=== PATIENT | female | born 1955 | race Two or more races ===

== ENCOUNTER 2016-06-27 17:41 | Emergency (ER) | payer OTHER ==
[2016-06-27 17:48] VITALS: O2SAT 95
[2016-06-27] MEDS ORDERED: METHOCARBAMOL 750 MG TAB PO ONE (19:09)
--- NOTE | 2016-06-27 19:11 | EDPHY ---
[id number] Exam Limitations: No limitations - Personal History Current Tetanus/Diphtheria Vaccine: Yes - Medical/Surgical History Hx Asthma: No Hx Chronic Respiratory Disease: No Hx Diabetes: No Hx Cardiac Disease: No Hx Renal Disease: No Hx Cirrhosis: No Hx Alcoholism: No Hx HIV/AIDS: No Hx Splenectomy or Spleen Trauma: No Other PMH: HTN, Cervical CA, high cholesteral, l hip surgery. - Social History Smoking Status: Former smoker Time Seen by Provider: 06/27/16 18:12 HPI/ROS: CHIEF COMPLAINT: Left-sided neck pain HISTORY OF PRESENT ILLNESS: 60-year-old female presents emergency department complaining of left-sided neck pain after she slipped on the ice yesterday while leaving work. Patient states she fell onto her knees and then onto her left hip. She denies head strike, no loss of consciousness, remembers the entire accident. Patient reports her knees feel mildly sore, no swelling, her left hip feels normal with no pain, she does have this replaced last year. She denies numbness or tingling in her arms or legs. Patient reports stiffness in the left side of her neck that radiates down to her trapezius. She saw her physical therapist today who recommended she see a provider who can prescribe her physical therapy. REVIEW OF SYSTEMS: A comprehensive 10 point review of systems is otherwise negative aside from elements mentioned in the history of present illness. (Gina Lugo) - Physical Exam Exam: Physical Exam Gen: Alert and Oriented, NAD HEENT: PERRL, moist mucous membranes NECK: no midline tenderness to palpation, left-sided paraspinal and sternocleidomastoid tenderness to palpation CV: regular rate and regular rhythm PULM: CTAB, no wheezes ABDOMEN: soft, non tender to palpation, BS present BACK: Left-sided trapezius tenderness to palpation No midline tenderness to palpation NEURO: Neurologically grossly intact EXTREMITIES: normal appearing, full range of motion of bilateral shoulders, bilateral knees and hips. No contusions, abrasions or swelling SKIN: no rash or break in skin on exposed skin PSYCH: answers questions appropriately. (Gina Lugo) Constitutional: Initial Vital Signs Temperature (C) 36.6 C 06/27/16 17:45 Heart Rate 70 06/27/16 17:45 Respiratory Rate 17 06/27/16 17:45 Blood Pressure 135/89 H 06/27/16 17:45 O2 Sat (%) 95 06/27/16 17:45 O2 Delivery Mode Room Air Allergies/Adverse Reactions: No Known Allergies Allergy (Verified 06/27/16 17:43) Home Medications: Medication Instructions Recorded Hydrochlorothiazide 06/27/16 Lisinopril 06/27/16 Methocarbamol [Robaxin-750] 750 - 1,500 mg PO QID PRN #20 06/27/16 tablet Medical Decision Making ED Course/Re-evaluation: Patient reports complaining of left-sided neck pain after a slip and fall on ice yesterday. I have recommended ibuprofen, ice and heat, physical therapy. Patient has been given a prescription for methocarbamol. She is given return precautions for pain that is not controlled, worsening symptoms, any new questions or concerns. (Gina Lugo) I did not see this patient while she was in the emergency department. However her care was discussed with the nurse practitioner while the patient was in the department. I agree with treatment plan and management (Vijay Martínez) - Data Points Medications Given: Discontinued Medications Methocarbamol (Robaxin) 750 mg PO EDNOW ONE Stop: 06/27/16 19:10 Last Admin: 06/27/16 19:41 Dose: 750 mg Departure - Departure Disposition: Home, Routine, Self-Care Clinical Impression: Cervical strain, acute, Muscle spasm Condition: Good Instructions: Cervical Strain (ED), Muscle Spasm (ED) Additional Instructions: Take 600 mg of ibuprofen 3 times per day with food for 3-5 days takes Robaxin every 8 hours as needed for muscle spasms. Ice or heat whichever feels better. I recommend physical therapy for your symptoms. Return to the emergency department for any loss of control of your bowel or bladder, numbness to your groin, fevers, any other questions or concerns. Referrals: Delmi Choudhury MD [Primary Care Provider] - As per Instructions Stand Alone Forms: Work Comp Follow Up Prescriptions: Methocarbamol [Robaxin-750] 750 - 1,500 mg PO QID PRN #20 tablet PRN Reason: Spasms
[2016-06-27 19:43] VITALS: BP 135/78; PULSE 67; RESP 16; TEMP 97.7
== END 2016-06-27 19:41 | disposition home or self-care (01) ==
DX: S16.1XXA Strain of muscle, fascia and tendon at neck level, initial encounter (principal); M62.838 Other muscle spasm; I10 Essential (primary) hypertension; Z85.41 Personal history of malignant neoplasm of cervix uteri; Z87.891 Personal history of nicotine dependence; W00.0XXA Fall on same level due to ice and snow, initial encounter